=== PATIENT | female | born 1955 | race Caucasian/White ===

== ENCOUNTER → 2019-08-14 | Outpatient (CLI) | payer OTHER ==
[~2019-08-14] MED LIST: BUSP15 PO; CHOLESTEROL MED; DULO60 PO; TRAZ100 PO; [UNRECOGNIZED DRUG - REMARK]
[2019-08-18 15:07] LABS: HPV 16 Negative (Negative); HPV 18 Negative (Negative); HPV OTHER HR TYPES Negative (Negative)
== END | disposition home or self-care (01) ==
LOC: LAB SHORT 10:59 → LAB 10:59
PROVIDERS: Nurse Practitioner Women's Health
DX: Z12.4 Encounter for screening for malignant neoplasm of cervix (principal)
CPT/HCPCS: 87624; G0123

== ENCOUNTER → 2020-09-15 | Outpatient (CLI) | payer OTHER | END | disposition home or self-care (01) | LOC: LAB SHORT 14:38 → LAB 14:38 | DX: Z46.89 Encounter for fitting and adjustment of other specified devices (principal) | CPT/HCPCS: 87070; 87205 ==

== ENCOUNTER → 2021-11-08 | Outpatient (CLI) | payer OTHER ==
[2021-11-09 07:22] LABS: Candida species (DNA Probe) Positive (NEGATIVE); G. vaginalis (DNA Probe) Negative (NEGATIVE); T. vaginalis (DNA Probe) Negative (NEGATIVE)
== END | disposition home or self-care (01) ==
LOC: LAB SHORT 14:39
PROVIDERS: Obstetrics & Gynecology
DX: N89.8 Other specified noninflammatory disorders of vagina (principal)
CPT/HCPCS: 87480; 87510; 87660

== ENCOUNTER → 2022-05-15 | Outpatient (CLI) | payer OTHER ==
[2022-05-16 10:58] LABS: Candida species (DNA Probe) Negative (NEGATIVE); G. vaginalis (DNA Probe) Negative (NEGATIVE); T. vaginalis (DNA Probe) Negative (NEGATIVE)
== END | disposition home or self-care (01) ==
LOC: LAB SHORT 15:22 → LAB 15:22
PROVIDERS: Obstetrics & Gynecology
DX: N89.8 Other specified noninflammatory disorders of vagina (principal)
CPT/HCPCS: 87480; 87510; 87660

== ENCOUNTER 2022-10-03 05:54 | Day surgery (SDC) | payer OTHER ==
[~2022-10-03] VITALS: Ht 162.6 cm; Wt 78.9 kg
[2022-10-03] MEDS ORDERED: ATOR40TA PO (06:29)
[2022-10-03] MEDS ORDERED: LAMO100 PO (06:30)
[2022-10-03] MEDS ORDERED: ESCI20 PO (06:30)
[2022-10-03] MEDS ORDERED: PRAM.125 PO (06:31)
--- NOTE | 2022-10-03 07:06 | NUR ---
Ambulatory in [facility] warming gown applied. History, Chart, Medications and Allergies reviewed before start of procedure.Lungs clear T/O to Auscultation. Patient confirms NPO status and agrees with scheduled surgery. Pre-Op teaching done. Pt verbalizes understanding. Patient States Post-Procedure ride home has been arranged.
--- NOTE | 2022-10-03 10:34 | NUR ---
Pt transferred to bed via slider sheet. C/o nausea, will give zofran.
--- NOTE | 2022-10-03 10:43 | NUR ---
LR WIDE OPEN W/PRESSURE BAG
--- NOTE | 2022-10-03 10:51 | NUR ---
#2 LR WIDE OPEN
--- NOTE | 2022-10-03 10:53 | NUR ---
ICU RNs x2 at bedside to assess
--- NOTE | 2022-10-03 11:44 | NUR ---
BP 85/51, BP CUFF ON UPPER AMM, RIGHT ARM. PT LYING LEFT LATERAL. PT NOW DENIES ANY ADDITIONAL N/V AND PAIN, EXCEPT MILD DISCOMFORT IN URETHRA WHERE AVILES CATHETER INSERTED.
--- NOTE | 2022-10-03 12:03 | NUR ---
IVF increased to 250cc/hr, pt eating ice chips, denies pain or nausea.
--- NOTE | 2022-10-03 12:27 | NUR ---
Dr. Pearson notified of nausea and bp. IVF to 999, order for stat lab and 2nd IV placement.
[2022-10-03 12:53] LABS: Hematocrit 25.7 % (33.0-51.0); Hemoglobin 8.5 g/dL (11.5-16.0); Mean Corpuscular HGB 30.8 pg (26.0-34.0); Mean Corpuscular HGB Conc 33.1 g/dL (31.5-36.5); Mean Corpuscular Volume 93 fL (80-100); Mean Platelet Volume 9.6 fL (9.1-12.4); Platelet Count 181 K/mm3 (150-400); RDW Coefficient Variation 12.6 % (11.7-14.2); Red Blood Cell Count 2.76 M/mm3 (3.80-5.20); White Blood Cell Count 13.31 K/mm3 (4.00-11.30)
--- NOTE | 2022-10-03 13:37 | NUR ---
assumed care of pt, dr goode out of room to arrange a bed upstairs.
--- NOTE | 2022-10-03 14:36 | NUR ---
Report called to surgical floor RN at 1420. Pt continues to deny pain, n/v. Nunu care done, scant vag bleeding.
--- NOTE | 2022-10-03 14:51 | NUR ---
Lab at bedside for stat labs. pt c/o new onset back pain, aching. rates pain 4-5/10.
[2022-10-03 15:00] LABS: Hematocrit 25.6 % (33.0-51.0); Hemoglobin 8.6 g/dL (11.5-16.0)
[2022-10-03 15:22] LABS: Bun/Creatinine Ratio 26.3 (12.0-20.0); Calcium, Blood 8.8 mg/dL (8.5-10.1); Creatinine, Blood 0.76 mg/dL (0.40-1.00); Magnesium, Blood 2.1 mg/dL (1.6-2.4); Potassium, Blood 4.9 mmol/L (3.5-5.5)
--- NOTE | 2022-10-03 15:30 | NUR ---
Pt care and interventions charted on GE strip while in family place. Flowsheet printed and in pt chart. Please see chart notes in pt chart for futher information.
--- NOTE | 2022-10-03 15:45 | NUR ---
PATIENT ADMITTED TO ROOM 226 FROM [facility]. BEDSIDE REPORT REC'D. PATIENT A&O. VERY SCANT VAG BLEEDING NOTED. VSS. IVF INFUSING AT 250 ML PER HR. PATIENT STATES ABD PAIN 3/10 (RECENTLY MEDICATED FOR PAIN IN FBP.) DENIES NAUSEA, REQUESTING MILK AND CRACKERS. FC DRAINING CLEAR YELLOW URINE TO BSD. PAS IN PLACE. CALL LIGHT IN REACH. CONT TO MONITOR.
[2022-10-03 21:05] LABS: Hematocrit 23.3 % (33.0-51.0); Hemoglobin 7.9 g/dL (11.5-16.0)
--- NOTE | 2022-10-04 04:02 | NUR ---
SHIFT SUMMARY POD1 FOR VAG HYSTER WITH A&P REPAIR. SCANT OLD BLOOD ON PAD THIS AM, AVILES IN PLACE PATENT AND DRAINING YELLOW CLEAR URINE. PATIENT MEDICATED PER EMAR FOR PAIN. TOLERATES PO INTAKE, ABLE TO REST T/O SHIFT. PATIENT SATS DECREASED TO 86% AFTER PAIN MEDICATION, O2 3L NC APPLIED SATS BACK TO 96%. PATIENT ABLE TO REPOSITION AND SIT ON EDGE OF BED THIS SHIFT. BP STABLE, PLAN TO DC AVILES FOR SPONTANEOUS VOIDS THIS AM. WILL REPORT TO DAY RN. CALL LIGHT IN REACH
[2022-10-04 05:19] LABS: Hematocrit 22.1 % (33.0-51.0); Hemoglobin 7.2 g/dL (11.5-16.0); Mean Corpuscular HGB 30.3 pg (26.0-34.0); Mean Corpuscular HGB Conc 32.6 g/dL (31.5-36.5); Mean Corpuscular Volume 93 fL (80-100); Mean Platelet Volume 9.8 fL (9.1-12.4); Platelet Count 181 K/mm3 (150-400); RDW Coefficient Variation 12.8 % (11.7-14.2); RDW Standard Deviation 43.5 fL (35.1-46.3); Red Blood Cell Count 2.38 M/mm3 (3.80-5.20); White Blood Cell Count 9.72 K/mm3 (4.00-11.30)
--- NOTE | 2022-10-04 10:09 | NUR ---
PT VOIDED 400ML FOLLOWING BLADDER SCAN SHOWING 377ML. PVR SCAN 10ML.
[2022-10-04] MEDS ORDERED: IBUP800 PO (12:57)
[2022-10-04] MEDS ORDERED: ACET500 PO (12:57)
[2022-10-04] MEDS ORDERED: ROXICODONE5 MG PO (12:58)
[2022-10-04] MEDS ORDERED: SIME80CH PO (12:58)
== END 2022-10-04 13:37 | disposition home or self-care (01) ==
LOC: ORSCMMR 05:54 → ORD 07:30 → ORSCMMR 07:30 → BC 10:34 → SURS 15:43 → ORSCMMR 10-04 13:37
PROVIDERS: Obstetrics & Gynecology
PROC: 0JQC0ZZ Repair Pelvic Region Subcutaneous Tissue and Fascia, Open Approach (ICD-10-PCS; principal; 2022-10-03 07:30)
PROC: 0UT97ZZ Resection of Uterus, Via Natural or Artificial Opening (ICD-10-PCS; principal; 2022-10-03 07:30)
DX: N81.2 Incomplete uterovaginal prolapse (principal); N81.6 Rectocele; F41.8 Other specified anxiety disorders; E78.00 Pure hypercholesterolemia, unspecified; Z79.899 Other long term (current) drug therapy
CPT/HCPCS: 36415; 80048; 83735; 85014; 85018; 85027; 86850; 86900; 86901; 88307; A9270; J0690; J1100; J1170; J1885; J2250; J2405; J2704; J2916; J3010; J7120

== ENCOUNTER → 2022-11-14 | Outpatient (CLI) | payer OTHER ==
[~2022-11-14] MED LIST changes: +ACET500 PO; +ATOR40TA PO; +ESCI20 PO; +IBUP800 PO; +LAMO100 PO; +PRAM.125 PO; +ROXICODONE5 MG PO; +SIME80CH PO
[2022-11-15 09:35] LABS: Candida species (DNA Probe) Negative (NEGATIVE); G. vaginalis (DNA Probe) Negative (NEGATIVE); T. vaginalis (DNA Probe) Negative (NEGATIVE)
== END | disposition home or self-care (01) ==
LOC: LAB 16:12 → LAB SHORT 16:12
PROVIDERS: Obstetrics & Gynecology
DX: N76.0 Acute vaginitis (principal)
CPT/HCPCS: 87480; 87510; 87660

== ENCOUNTER → 2023-10-26 | Outpatient (CLI) | payer OTHER ==
[2023-10-27 19:43] LABS: Adenovirus F 40/41 Not Detected (NOT DETECT); Astrovirus Not Detected (NOT DETECT); Campylobacter Sp Not Detected (NOT DETECT); Cryptosporidium Not Detected (NOT DETECT); Cyclospora Cayetanensis Not Detected (NOT DETECT); E. Coli O157 Not Detected (NOT DETECT); Entamoeba Histolytica Not Detected (NOT DETECT); Enteroaggregative E. coli-EAEC Not Detected (NOT DETECT); Enteropathogenic E. coli-EPEC Not Detected (NOT DETECT); Enterotoxigenic E. coli-ETEC Not Detected (NOT DETECT); Giardia Lamblia Not Detected (NOT DETECT); Norovirus GI/GII Not Detected (NOT DETECT); Plesiomonas Shigelloides Not Detected (NOT DETECT); Rotavirus A Not Detected (NOT DETECT); Salmonella Sp Not Detected (NOT DETECT); Sapovirus Not Detected (NOT DETECT); Shiga Toxin-prod E. coli-STEC Not Detected (NOT DETECT); Shigella/Enteroin E. coli-EIEC Not Detected (NOT DETECT); Vibrio Cholerae Not Detected (NOT DETECT); Vibrio Sp Not Detected (NOT DETECT); Yersinia Enterocolitica Not Detected (NOT DETECT)
== END ==
LOC: LAB 21:00 → LAB SHORT 21:00
PROVIDERS: Physician Assistant Surgical
DX: K52.9 Noninfective gastroenteritis and colitis, unspecified (principal)
CPT/HCPCS: 87507